=== PATIENT | female | born 1980 | race Caucasian/White ===

== ENCOUNTER → 2017-02-12 | Outpatient (CLI) | payer OTHER ==
--- NOTE | 2017-02-12 13:14 | MR ---
EXAMINATION TYPE: MR knee RT wo con DATE OF EXAM: 02/12/2017 COMPARISON: NONE HISTORY: Right knee pain TECHNIQUE: Multiplanar, multisequence imaging of the right knee is performed without IV contrast. FINDINGS: MEDIAL MENISCUS: Anterior and posterior horns are intact without tear. LATERAL MENISCUS: Anterior and posterior horns are intact without tear. CRUCIATE LIGAMENTS: The anterior and posterior cruciate ligaments are intact and unremarkable. COLLATERAL LIGAMENTS: The medial collateral ligament and lateral collateral ligament complex are inta ct. There is fluid signal adjacent to the MCL which could represent area of edema or possibly a tiny ganglion cyst measuring 10 x 5 millimeters. EXTENSOR MECHANISM: Visualized quadriceps and patellar tendons are intact. EFFUSION: No significant suprapatellar joint effusion. POPLITEAL CYST: No popliteal/hilton cyst. TRICOMPARTMENT SPACES: Joint spaces are preserved. There is no erosive changes. Cartilage is preserve d. BONE MARROW SIGNAL: There is an area of marrow edema involving the lateral femoral condyle. No def inite fracture line. Along the medial femoral condyle there is an additional 5 mm area of abnormal si gnal. Suggestive of edema. Small area of osteochondritis not excluded. No osteochondral fragment seen .. IMPRESSION: 1. Area of marrow edema involving the lateral femur extending to the midline compatible with bone con tusion with no definite fracture line. Smaller focus of abnormal signal along the anterior margin of the medial femur also suggestive of a area of marrow edema. Small focus of osteochondritis not exclud ed. No free osteochondral fragment. 2. No meniscal or ligamentous tear. There is a small area of edema adjacent to the inferior margin of the MCL could be secondary to strain or possibly related to tiny ganglion cyst.
== END | disposition home or self-care (01) ==
LOC: RADMRIMAIN 12:06
PROVIDERS: ATTEND Orthopaedic Surgery
DX: R60.0 Localized edema (principal); M25.561 Pain in right knee